=== PATIENT | male | born 1945 | race Two or more races ===

== ENCOUNTER 2022-08-02 13:58 | Inpatient (IN) | payer MEDICARE, BC ==
[~2022-08-02] VITALS: Ht 175.3 cm; Wt 54.4 kg
--- NOTE | 2022-08-02 14:38 | NUR ---
PARVEEN XAVIER FOR MEDICAL CLEARANCE AND PSYCH EVAL. PT IS ON A 5150 HOLD OF 1145 08/02/22. PT IS AAOX4, PLACED ON MONITOR.
[2022-08-02 15:18] LABS: BASOPHILS # (AUTO) 0.1 K/uL (0.0-0.2); BASOPHILS % (AUTO) 0.6 % (0.0-2.0); EOSINOPHILS % (AUTO) 0.7 % (0.0-6.0); HEMATOCRIT 46 % (39-51); HEMOGLOBIN 15.8 g/dL (13.5-17.5); LYMPHOCYTES # (AUTO) 1.8 K/uL (0.8-4.8); LYMPHOCYTES % (AUTO) 20.2 % (20.0-44.0); MEAN CORPUSCULAR HGB CONC 34 g/dl (31.0-36.0); MEAN CORPUSCULAR VOLUME 92 fL (80-96); MONOCYTES # (AUTO) 0.6 K/uL (0.1-1.30); MONOCYTES % (AUTO) 7.2 % (2.0-12.0); NEUTROPHILS # (AUTO) 6.2 K/uL (1.8-8.9); NEUTROPHILS % (AUTO) 71.3 % (43.0-81.0); PLATELET COUNT (AUTO) 359 K/uL (150-450); RED BLOOD CELL COUNT(AUTO) 5.02 MIL/uL (4.5-6.0); WHITE BLOOD COUNT (AUTO) 8.7 K/uL (4.3-11.0)
[2022-08-02 16:12] LABS: ALANINE AMINOTRANSFERASE 20 U/L (12-78); ALBUMIN 3.5 g/dL (3.4-5.0); ALCOHOL, BLOOD < 3 mg/dL (0-0); ALKALINE PHOSPHATASE 59 U/L (46-116); ASPARTATE AMINOTRANSFERASE 20 U/L (15-37); BILIRUBIN,DIRECT 0.4 mg/dL (0.0-0.2); BILIRUBIN,TOTAL 2.2 mg/dL (0.2-1.0); CARBON DIOXIDE 24 mmol/L (21-32); CHLORIDE 98 mmol/L (98-107); CREATININE 0.9 mg/dL (0.6-1.3); GLUCOSE 97 mg/dL (74-106); POTASSIUM 3.2 mmol/L (3.5-5.1); SODIUM SERUM 136 mmol/L (136-145); UREA NITROGEN, BLOOD 20 mg/dL (7-18)
[2022-08-02 16:15] LABS: ACETAMINOPHEN 0 ug/ml (10-30)
[2022-08-02] MEDS ORDERED: IV NS 0.9% 1,000 ML IV ONE (16:30)
[2022-08-02] MEDS ORDERED: POTASSIUM CHLORIDE 20 MEQ TAB.PRT.SR PO ONE ×2 (16:30→20:23)
[2022-08-02 18:47] LABS: BILIRUBIN,URINE 1+ (NEGATIVE); COLOR,URINE YELLOW (YELLOW); LEUKOCYTE ESTERASE ,URINE NEGATIVE (NEGATIVE); NITRITE, URINE NEGATIVE (NEGATIVE); PROTEIN,URINE TRACE mg/dl (NEGATIVE); UGLUCOSE NEGATIVE (NEGATIVE)
--- NOTE | 2022-08-02 19:26 | NUR ---
CALLED YUDELKA [phone]
--- NOTE | 2022-08-02 19:36 | NUR ---
COVID ANTIGEN SWAB COLLECTED AND SENT TO LAB
[2022-08-02 20:32] LABS: BACTERIA,URINE Few /HPF (None Seen); RBC,URINE 0-2 /HPF (0-2); WBC,URINE NONE SEEN /HPF (0-3)
[2022-08-02 20:33] LABS: SQUAMOUS EPITHELIAL CELL,UR Rare /HPF (None Seen)
[2022-08-02 20:37] LABS: CALCIUM OXALATE CRYSTALS,UR Moderate /HPF (None Seen)
[2022-08-02 20:39] LABS: CALCIUM CARBONATE CRYSTALS,UR Few /HPF (None Seen)
--- NOTE | 2022-08-02 21:46 | NUR ---
REPORT GIVEN TO [facility] GPS RN FOR TANNER
[2022-08-02 22:00] VITALS: BP 128/88
--- NOTE | 2022-08-02 22:09 | NUR ---
PT TRANSFERRING TO [facility] GPS VIA HOSPITAL PROTOCOL. VSS. ALL BELONGINGS WITH PT.
--- NOTE | 2022-08-02 22:09 | NUR ---
IV removed. Catheter intact and site benign. Pressure and 4x4 applied to site. No bleeding noted.
--- NOTE | 2022-08-02 22:10 | NUR ---
RN NOTE: ADMITTED A 77-Y/O, MALE, FROM [facility]-, INITIALLY PT CAME FROM HOME. ADMITTED ON A 5150 HOLD FOR DTS/GD. PER HOLD, ACCORDING TO FAMILY PATIENT HAS BEEN DEPRESSED AND NOT GETTING OUT OF BED. PATIENT IS NOT FEEDING HIMSELF OR TAKING CARE OF HIMSELF. UPON FACE TO FACE EVALUATION, PATIENT IS ALERT AND ORIENTED X2, PT. IS COOPERATIVE TO CARE, GUARDED, APPEARS TO BE DEPRESSED. VERBALIZATION OF FEELINGS ENCOURAGED. DENIES SI/HI AT THIS TIME. SKIN ASSESSMENT DONE. PT UNABLE TO SIGN ADMISSION PAPERWORK DUE TO CONFUSION. ALL BELONGINGS WERE SCREENED FOR CONTRABAND. PATIENT'S RIGHTS WERE DISCUSSED AND BOOKLET WAS GIVEN. CONTACTED DR. KRISHNAN AND HOSPITALIST ALFONSO PATTON INFORMED THEM OF THE ADMISSION. BED IN LOWEST POSITION, LOCKED. SAFETY PRECAUTIONS MAINTAINED. WILL CONTINUE TO MONITOR Q15 MINS FOR MOOD, SAFETY AND BEHAVIOR.
[2022-08-02] MEDS ORDERED: TEMAZEPAM 7.5 MG CAPSULE PO PRN (22:30)
[2022-08-02] MEDS ORDERED: LORAZEPAM 0.5 MG TABLET PO PRN (22:30)
[2022-08-02] MEDS ORDERED: BLOOD SUGAR DIAGNOSTIC 1 EACH STRIP IN ONE (22:30)
[2022-08-02] MEDS ORDERED: MAG HYDROX/AL HYDROX/SIMETH 30 ML UDC PO PRN (22:30)
[2022-08-02] MEDS ORDERED: MAGNESIUM HYDROXIDE 30 ML UDC PO PRN (22:30)
[2022-08-02] MEDS ORDERED: ACETAMINOPHEN 325 MG TABLET PO PRN (22:30)
[2022-08-03] MEDS ORDERED: FLUO10CA29 MT (03:18)
[2022-08-03 07:17] LABS: CREATININE 0.7 mg/dL (0.6-1.3)
[2022-08-03 08:00] VITALS: BP 129/60
[2022-08-03] MEDS: PANTOPRAZOLE 40 MG TABLET.DR PO SCH (08:02)
--- NOTE | 2022-08-03 10:26 | NUR ---
KWASI Initial Discharge Plan: Pt currently resides at [address] [place] [address]; ([phone]). Pt reported he would want to return back home when stable. Pt stated that his brother and sister live across the street. He was unable to give siblings information, he stated sister was traveling [place] and changed her number because she had lost her phone. KWASI will work with the MD, family, and pt to help coordinate dc.
--- NOTE | 2022-08-03 10:27 | NUR ---
KWASI Clinical Note: Pt placed on a 5150 hold for danger to herself and GD. Pt has been depressed at home and has not been eating at home. Pt currently resides at [address] [place] [address]; ([phone]). Pt reported he would want to return back home when stable. Pt stated that his brother and sister live across the street. He was unable to give siblings information, he stated sister was traveling [place] and changed her number because she had lost her phone.
--- NOTE | 2022-08-03 10:28 | NUR ---
Treatment Plan: Pt refused to sign treatment plan and appeared suspicious.
--- NOTE | 2022-08-03 12:12 | NUR ---
RN-CO: Notified Dr Bertin Vanessa regarding this admission. Addendum: 08/03/22 at 1643 by ANNA MARIE ROBERT RN RN-CO: DR VANESSA IS NOT THE MEDICAL DOCTOR, IT IS EPIC PER DR BLAS MAJOR. DR VANESSA IS AWARE PER DR MAJOR.
[2022-08-03] MEDS: DULOXETINE HCL 30 MG CAPSULE.DR PO SCH (13:50)
[2022-08-03 16:00] VITALS: BP 100/64
[2022-08-03 20:13] VITALS: BP 106/69
[2022-08-03] MEDS: MIRTAZAPINE 15 MG TABLET PO SCH (21:10)
[2022-08-04 08:00] VITALS: BP 134/85
[2022-08-04] MEDS: PANTOPRAZOLE 40 MG TABLET.DR PO SCH (08:09)
--- NOTE | 2022-08-04 09:30 | NUR ---
RN Notes: Received pt. awake in bed, responsive to staffs and with depressed mood. ate 100% for breakfast and compliant on med. Pt. denies suicidal and homicidal and denies visual and auditory hallucinations and said he is depressed. Encouraged to verbalize feelings and motivated and motivated to attend group activity. Needs attended and will continue to monitor for safety.
[2022-08-04] MEDS: DULOXETINE HCL 30 MG CAPSULE.DR PO SCH (12:33)
[2022-08-04 16:00] VITALS: BP 100/70
--- NOTE | 2022-08-04 19:30 | NUR ---
GPS RN NOTE, RECEIVED PATIENT AWAKE AND IN BED, NO S/S OR COMPLAINTS OF PAIN AT THIS TIME. PATIENT IS DISPLAYING NO S/S OF APPARENT DISTRESS AT THIS TIME. PATIENT BREATHING IS UNLABORED WITH EQUAL RISE AND FALL OF THE CHEST. PATIENT IS ALERT AND ORIENTED X 3 ON ROOM AIR WITH A SPO2 99%. PATIENT IS COMPLIANT WITH MEDICATIONS, DEPRESSED, ISOLATIVE, POLITE, AND COOPERATIVE. PATIENT DENIES SUICIDAL AND HOMICIDAL IDEATIONS AT THIS TIME. PATIENT ASSISTED WITH TURNING AND REPOSITIONING Q2HR AND PRN FOR COMFORT AND CIRCULATION. PATIENT HAS NO NEEDS AT THIS TIME. PATIENT EDUCATED ON THE USE OF THE CALL ROSAS. PATIENT BED SIDE RAILS UP X 2 FOR SAFETY. PATIENT BED IS LOCKED AND LOW. WILL CONTINUE TO MONITOR THIS PATIENT Q15 MINUTES WITH THE HELP OF STAFF TO MAINTAIN SAFETY.
[2022-08-04 21:01] VITALS: BP 95/65
[2022-08-04] MEDS: MIRTAZAPINE 15 MG TABLET PO SCH (21:43)
[2022-08-05] MEDS: PANTOPRAZOLE 40 MG TABLET.DR PO SCH (07:55)
[2022-08-05 08:00] VITALS: BP 113/81
[2022-08-05] MEDS: ENSURE ENLIVE CHOC 237 ML CAN PO SCH ×2 (08:25→17:29)
[2022-08-05] MEDS: DULOXETINE HCL 30 MG CAPSULE.DR PO SCH (12:24)
--- NOTE | 2022-08-05 15:17 | NUR ---
SW Family: Patient's sister Alyse ([phone]) on the unit brought pt to sign a check so that he does not lose his house. She reported that by Sep 06 his house will be on sale and will move in with her. Upon discharge sister and pt stated that he would want to return back home.
[2022-08-05 16:00] VITALS: BP 100/65
[2022-08-05 20:00] VITALS: BP 109/65
--- NOTE | 2022-08-05 20:28 | NUR ---
RN NOTES: PATIENT RESTING IN BED AWAKE,ALERT, DEPRESSED, ISOLATIVE , POLITE ,COOPERATIVE , NO ACUTE DISTRESS NOTED. COMPLIANT WITH MEDICATIONS.ENCOURAGED TO VERBALIZED ANY FEELING OR CONCERN. ALL NEEDS ATTENDED AND ANTICIPATED. WILL CONTINUE TO. MONITORING FOR SAFETY AND BEHAVIOR.
[2022-08-05] MEDS: MIRTAZAPINE 15 MG TABLET PO SCH (20:48)
[2022-08-06 08:00] VITALS: BP 102/67
[2022-08-06] MEDS: PANTOPRAZOLE 40 MG TABLET.DR PO SCH (08:09)
[2022-08-06] MEDS: ENSURE ENLIVE CHOC 237 ML CAN PO SCH ×2 (08:10→18:53)
[2022-08-06] MEDS: DULOXETINE HCL 30 MG CAPSULE.DR PO SCH (12:02)
[2022-08-06 16:14] VITALS: BP 108/85
[2022-08-06] MEDS: MIRTAZAPINE 15 MG TABLET PO SCH (20:05)
[2022-08-06 20:51] VITALS: BP 126/69
--- NOTE | 2022-08-07 05:29 | NUR ---
RN NOTES: PATIENT RESTING IN BED , DEPRESSED, ISOLATIVE , POLITE ,COOPERATIVE , NO ACUTE DISTRESS NOTED. COMPLIANT WITH MEDICATIONS.ENCOURAGED TO VERBALIZED ANY FEELING OR CONCERN. ALL NEEDS ATTENDED AND ANTICIPATED. WILL CONTINUE TO. MONITORING FOR SAFETY AND BEHAVIOR.
--- NOTE | 2022-08-07 07:00 | NUR ---
GPS RN OPENING NOTE PATIENT LAYING IN BED, A/O X 3, ABLE TO MAKE NEEDS KNOWN, DEPRESSED, MED COMPLIANT. WILL CONTINUE TO MONITOR
[2022-08-07 08:00] VITALS: BP 119/90
[2022-08-07] MEDS: PANTOPRAZOLE 40 MG TABLET.DR PO SCH (08:09)
[2022-08-07] MEDS: ENSURE ENLIVE CHOC 237 ML CAN PO SCH ×2 (08:10→16:58)
[2022-08-07] MEDS: DULOXETINE HCL 30 MG CAPSULE.DR PO SCH (12:18)
[2022-08-07 16:00] VITALS: BP 100/68
[2022-08-07 20:29] VITALS: BP 100/63
[2022-08-07] MEDS: MIRTAZAPINE 15 MG TABLET PO SCH (20:46)
[2022-08-08] MEDS: PANTOPRAZOLE 40 MG TABLET.DR PO SCH (07:47)
[2022-08-08] MEDS: ENSURE ENLIVE CHOC 237 ML CAN PO SCH ×2 (07:48→16:51)
[2022-08-08 08:00] VITALS: BP 105/53
[2022-08-08] MEDS: DULOXETINE HCL 30 MG CAPSULE.DR PO SCH (12:33)
[2022-08-08 16:00] VITALS: BP 103/70
[2022-08-08] MEDS: MIRTAZAPINE 15 MG TABLET PO SCH (21:00)
[2022-08-08 22:38] VITALS: BP 100/68
[2022-08-09 08:00] VITALS: BP 100/74
[2022-08-09] MEDS: PANTOPRAZOLE 40 MG TABLET.DR PO SCH (09:03)
[2022-08-09] MEDS: ENSURE ENLIVE CHOC 237 ML CAN PO SCH ×2 (09:10→16:29)
--- NOTE | 2022-08-09 09:45 | NUR ---
Court Notification: SW contacted pt's sister Alyse ([phone]) to notify of [phone] and left a voicemail.
--- NOTE | 2022-08-09 10:30 | NUR ---
Court Hearing: Patient's court hearing for [id number] was today and it was upheld for GD.
[2022-08-09] MEDS: DULOXETINE HCL 30 MG CAPSULE.DR PO SCH (12:00)
[2022-08-09 16:00] VITALS: BP 100/70
[2022-08-09 20:10] VITALS: BP 103/70
[2022-08-09] MEDS: MIRTAZAPINE 15 MG TABLET PO SCH (20:29)
[2022-08-10 08:00] VITALS: BP 139/77
[2022-08-10] MEDS: ENSURE ENLIVE CHOC 237 ML CAN PO SCH (08:15)
[2022-08-10] MEDS: PANTOPRAZOLE 40 MG TABLET.DR PO SCH (08:15)
[2022-08-10] MEDS ORDERED: MEGESTROL ACETATE SUSP 400 MG/10 ML UDC PO SCH (09:00)
--- NOTE | 2022-08-10 09:23 | NUR ---
RN-CO: PATIENT DENIED PAIN AND DISCOMFORTS, ATE HIS BRAKFAST AND TOOK HIS MEDICATIONS, HOWEVER HE REMAINS UNMOTIVATED AND DEPRESSED. HE DENIED SUICIDAL IDEATION. I ENCOURAGED HIM TO VENTILATE FEELINGS AND PARTICIPATE IN GROUP ACTIVITIES.
--- NOTE | 2022-08-10 10:20 | NUR ---
KWASI Coordination of Care: Pt will follow up with ([employer]) Dr. Crooks located at [address] [facility] [address], [place] [address] on August 19 at 4:15PM who will monitor and provide pt with antipsychotic medications. Scheduled by Lisa outpatient receptionist.
--- NOTE | 2022-08-10 10:21 | NUR ---
SW Discharge Note: Patient will return back home located at [address] [place] [address]; ([phone]). 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 Pt is alert and oriented x3. Pt denies suicidal or homicidal ideation. Pt denies visual/auditory hallucinations. Pt will follow up with ([employer] Developer) Dr. Crooks located at [address] [facility] [address], [place] [address] on August 19 at 4:15PM who will monitor and provide pt with antipsychotic medications. Pt presents with euthymic mood and congruent affect.
--- NOTE | 2022-08-10 10:57 | NUR ---
RN-CO: Patient is alert and oriented x3-4, able to make needs known, self care. He is calm and cooperative to care. He denied suicidal and homicidal ideation as well as auditory and visual hallucination. He was medically cleared for discharge. Dr Amy barboza, seen and examined the patient with orders to discontinue hold and discharge patient home. Dr Meier seen and examined the patient as well this morning. All belongings will be given back to him. Discharge papers were discussed and he verbalized understanding.
--- NOTE | 2022-08-10 11:47 | NUR ---
RN-CO: DR HARRELL MEDICALLY CLEARED PT FOR DISCHARGE. PATIENT SIGNED DISCHARGE PAPERS AFTER I DISCUSSED TO HIM AND HE ALSO VERBALIZED UNDERSTANDING. MADE SURE THAT HE KNOWS THAT HE HAS A DOCTOR'S APPT (DR ARTHUR) ON AUG 19 AT 4:15PM , HE WILL MONITOR PATIENTS WELLBEING AND HIS MEDICATIONS.
[2022-08-10] MEDS: DULOXETINE HCL 30 MG CAPSULE.DR PO SCH (12:27)
--- NOTE | 2022-08-10 14:56 | NUR ---
RN-CO: Patient was picked up by brother Kaz and sister Alyse. All valuables and belongings were given back as well as the discharge papers, appt, prescriptions.
== END 2022-08-10 15:00 | disposition home or self-care (01) | DRG 885 ==
LOC: ER 14:10 → GPS 21:20
PROVIDERS: ADMIT Psychiatry & Neurology Psychosomatic Medicine; ATTEND Nurse Practitioner Acute Care
DX: F33.1 Major depressive disorder, recurrent, moderate (principal); F03.93 Unspecified dementia, unspecified severity, with mood disturbance; F03.94 Unspecified dementia, unspecified severity, with anxiety; E87.6 Hypokalemia; Z73.6 Limitation of activities due to disability; R62.7 Adult failure to thrive; Z87.891 Personal history of nicotine dependence; K21.9 Gastro-esophageal reflux disease without esophagitis; E80.6 Other disorders of bilirubin metabolism; R79.89 Other specified abnormal findings of blood chemistry; F41.9 Anxiety disorder, unspecified
CPT/HCPCS: 36415; 80048-TC; 80061-TC; 80076-TC; 81001; 82565-TC; 85025-TC; G0480; J7030